=== PATIENT | female | born 1960 | race Caucasian/White ===

== ENCOUNTER → 2018-03-07 | Outpatient (CLI) | payer OTHER, BC ==
--- NOTE | ~2018-03-07 | EKG ---
[address] [place] [place] [address] ELECTROCARDIOGRAM REPORT Name: NIKKY YATES [id number] Admission: 03/07/18 Attend Phys: Keon Mcclure MD Discharge: Date of : 60 Report #: [id number] THIS REPORT FOR: //name// [facility] Test Date: 2018-03-07 Test Time: 13:40:26 Pat Name: NIKKY YATES Department: Room: Gender: F Chairman Emeritus: MIN : 1960 Requested By: Keon Mcclure Order Number: [id number] MD: Didier Zamudio Measurements Intervals Musella Rate: 57 P: 71 [place]: 221 QRS: 45 QRSD: 119 T: 49 QT: 545 QTc: 531 Interpretive Statements Sinus bradycardia Prolonged [place] interval Otherwise no significant abnormality No previous ECG available for comparison Electronically Signed On 03-08-2018 8:27:33 [employer] by Didier Zamudio [email or web address] <ELECTRONICALLY SIGNED> By: Didier Zamudio MD, [facility] 03/08/18 0827 1340 1340 Didier Zamudio MD, FACC /EPI
== END ==
LOC: ULTRA 11:51
DX: J98.4 Other disorders of lung (principal); E04.1 Nontoxic single thyroid nodule; N25.81 Secondary hyperparathyroidism of renal origin; N18.6 End stage renal disease; E03.9 Hypothyroidism, unspecified; D17.0 Benign lipomatous neoplasm of skin and subcutaneous tissue of head, face and neck; Z99.2 Dependence on renal dialysis

== ENCOUNTER 2018-04-13 05:14 | Inpatient (IN) | payer OTHER, BC ==
[~2018-04-13] VITALS: Ht 154.9 cm; Wt 77.1 kg
[~2018-04-13 05:14] MED LIST: DIAZEPAM 2MG TAB2 MG PO; DOXYCYCLINE 10100 MG PO; MIDODRINE HCL10 MG PO; NEPHROCAPS SOFT1 CAP PO; ONDANSETRON HCL4 M2 PO; OXYCODONE-ACET1 EAC2 PO; PROCTOCREAM-HC30 GM TOP; PROCTOZONE-HC30 GM TOP; PROTONIX40 M1 PO; REQUIP0.5 MG PO; SYNTHROID150 MCG PO; TRAZODONE 150150 M1 PO; VENLAFAXINE HC150 MG PO; VENTOLIN HFA 1818 GM INH; ZOCOR 10 MG TAB10 M1 PO
[2018-04-13 10:17] VITALS: BP 125/64
[2018-04-13 10:25] LABS: CALCIUM 6.6 mg/dL (8.5-10.1); CREATININE 4.9 mg/dL (0.6-1.0); POTASSIUM 4.5 mmol/L (3.5-5.1)
[2018-04-13 10:31] LABS: ALBUMIN 3.4 g/dL (3.4-5.0); TOTAL BILIRUBIN 0.5 mg/dL (<0.1-1.0)
[2018-04-13] MEDS ORDERED: RENVELA800 MG PO ×2 (11:26→11:27)
[2018-04-13 18:51] LABS: ALBUMIN 3.3 g/dL (3.4-5.0); MAGNESIUM 2.2 mg/dL (1.8-2.4)
[2018-04-13 20:10] VITALS: BP 143/68
[2018-04-14 04:51] VITALS: BP 111/59
[2018-04-14 07:25] VITALS: BP 113/61
[2018-04-14 07:41] LABS: ALBUMIN 3.3 g/dL (3.4-5.0); POTASSIUM 4.9 mmol/L (3.5-5.1)
[2018-04-14 07:42] LABS: CALCIUM 5.5 mg/dL (8.5-10.1); CREATININE 6.1 mg/dL (0.6-1.0)
--- NOTE | 2018-04-14 10:58 | H ---
[facility] [place] [address] HISTORY AND PHYSICAL Name: NIKKY YATES Room #: 423-1 ADM IN M.R.#: [id number] Admission: 04/14/18 Attend Phys: Keon Mcclure MD Discharge: Date of : 60 Report #: [id number] THIS REPORT FOR: //name// CC: Wilfred Corbin DATE OF PROCEDURE: 04/13/2018. PREOPERATIVE DIAGNOSES: 1. Secondary hyperparathyroidism. 2. End-stage renal disease, on dialysis. HISTORY OF PRESENT ILLNESS: The patient is a 58-year-old female, referred by Dr. Hurtado for definitive treatment of secondary hyperparathyroidism. The patient has end-stage renal disease and is on dialysis. She has been unresponsive to Sensipar. The patient's PTHs have been as high as 1198. This caused difficulty in the management of her phosphorus. Her calcium has been managed with her dialysis. She dialyzes 3 times a week. The patient is symptomatic with bone and joint pain and muscle fatigue. In addition, the patient is hypothyroid with a severely atrophic thyroid. She has been on levothyroxine replacement. PAST MEDICAL HISTORY: Significant for end-stage renal disease, on dialysis. Anxiety, diabetes mellitus, osteoporosis, history of transfusion. History of colonoscopy with polyp removal. History of cholecystectomy, history of inguinal herniorrhaphy repair, history of a gastric bypass, history of CVA, history of thyroid disease. History of coronary artery disease. MEDICATIONS: Noted in MAR. ALLERGIES: CODEINE, METFORMIN AND LYRICA. REVIEW OF SYSTEMS: Significant for bone and joint pain as well as hyperparathyroidism and end-stage renal disease. Remaining 12-point review of systems negative. PHYSICAL EXAMINATION: GENERAL: Well-developed 58-year-old overweight female. HEENT: Normocephalic. Pupils equal, round, reactive to light. Otologic exam intact. Normal tympanic membrane. No middle ear effusion. Nasal exam is clear. Oral cavity, no lesions. Hypopharynx mobile vocal cords. 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 Trachea is midline. No palpable thyroid mass or parathyroid mass. NEUROLOGIC: Cranial nerves 2-12 intact. Motor and sensory exams are normal. [address] [address] HISTORY AND PHYSICAL Name: NIKKY YATES Room #: 423-1 [facility] IN ..#: [id number] Admission: 04/14/18 Attend Phys: Keon Mcclure MD Discharge: Date of : 60 Report #: [id number] ASSESSMENT: 1. Secondary hyperparathyroidism, resistant to Sensipar . 2. End-stage renal disease, on dialysis. 3. Multinodule hypoactive thyroid with atrophic findings and calcified nodules. 4. Anterior neck lipoma. PLAN: Recommendations were made for parathyroidectomy with autotransplantation, in addition, possible total thyroidectomy. I have discussed the procedure, indications, alternatives, benefits, potential risks with the patient who understands and desires to proceed. <ELECTRONICALLY SIGNED> By: Keon Mcclure MD 04/14/18 1058 1805 1838 Keon Mcclure MD /nt
--- NOTE | 2018-04-14 10:58 | O ---
[facility] [place] [address] OPERATIVE REPORT Name: NIKKY YATES Room #: 423-1 ADM IN M.R.#: [id number] Admission: 04/14/18 Attend Phys: Keon Mcclure MD Discharge: Date of : 60 Report #: [id number] THIS REPORT FOR: //name// CC: Dr. Bryant Corbin DATE OF SERVICE: 04/13/2018 PREOPERATIVE DIAGNOSES: 1. Secondary hyperparathyroidism. 2. End-stage renal disease, on dialysis. 3. Multinodular goiter with hypothyroidism. POSTOPERATIVE DIAGNOSES: 1. Secondary hyperparathyroidism. 2. End-stage renal disease, on dialysis. 3. Multinodular goiter with hypothyroidism. PROCEDURES: 1. Total parathyroidectomy. 2. Parathyroid autotransplantation right superior to right sternocleidomastoid muscle. 3. Total thyroidectomy. 4. Nerve integrity monitoring x 2 hours. INDICATIONS: The patient is a 58-year-old female referred by Dr. Hurtado with secondary hyperparathyroidism that has been recalcitrant to treatment with parathyroids running in the 1200 range. Her calcium has been managed with her dialysis. The patient is symptomatic with bone pain and muscle pain and she has been referred for surgical management. In addition, she has a multinodular thyroid. DESCRIPTION OF PROCEDURE: The patient was brought to the operating room and placed supine on the operating table. After adequate general anesthesia was achieved via endotracheal intubation with a nerve integrity monitoring endotracheal tube, shoulder roll was placed and neck was extended. She was then prepped and aped in a sterile fashion. As a separate part of the procedure, the XDial a Dealer nerve integrity monitor was applied to the electrodes from the endotracheal tube. Needle electrodes were placed in the soft tissue overlying the sternum and contralateral shoulder. Electrode resistance and impedance was measured and found to be acceptable. Threshold and stimulus intensity parameters were set and the patient was monitored for the entirety of the case of approximately 2-3 hours in order to locate and protect the recurrent laryngeal nerve. [address] [address] OPERATIVE REPORT Name: NIKKY YATES Room #: 423-1 ADM IN .R.#: [id number] Admission: 04/14/18 Attend Phys: Keon Mcclure MD Discharge: Date of : 60 Report #: [id number] Procedure began with an incision through skin and subcutaneous tissue and platysma. Subplatysmal flaps were elevated superiorly and inferiorly. Dissection was made down to the strap muscles. These were divided vertically in the midline and retracted laterally. Procedure began on the patient's left side beginning superiorly. The superior thyroid vessels were identified. The middle thyroid vein was taken down between Ligaclips and the inferior thyroid vein identified. Along the inferior vein, there was noted to be parathyroid that was enlarged, although not usually. This was then removed and sent off the field as specimen confirming parathyroid tissue. 15 minutes after that was excised an initial intraoperative PTH was done, we turned a value of 1337. Baseline preoperative was 1928. Search was then continued on the right side again along the inferior thyroid vein. The parathyroid was easily identified, again enlarged. This was dissected free, delivered off the field as specimen and confirmed as parathyroid tissue. 15 minutes after excision of the second parathyroid, this returned a value of 773. The gland was then rolled superiorly. There was a superior parathyroid opposite the cricothyroid joint. This was then dissected free, again enlarged. This was deep posterior to the recurrent nerve and lying along the esophagus. This was also enlarged. This was removed. This was then bivalved keeping a piece behind and sent to the pathologist for frozen section. This again returned cellular parathyroid. After 15 minutes post-removal, our value was 406. Search began on the opposite left side. There was a very suspicious calcified nodule present in this thyroid and for that reason it was elected to proceed with thyroidectomy. Beginning on the right, the superior vessels were dissected between Ligaclips and divided. Middle thyroid vein had already been taken down, the inferior vessels were clamped between Ligaclips and divided. Dissection began superior to inferior. The recurrent nerve was identified in the tracheoesophageal groove and tracked superiorly to the cricothyroid joint. Keeping this in direct vision, Dunn's ligament was taken down sharply. The isthmus was then divided and this specimen was placed in formalin. On the left side beginning superiorly, the superior vessels were sequentially identified, clamped between Ligaclips and divided. Middle thyroid vein was taken down between Ligaclips and inferiorly the vessels were sequentially identified, clamped between Ligaclips and divided. The thyroid gland was extremely hypoplastic and atrophic, but there were very large veins noted. This was then dissected from lateral to medial. The recurrent nerve was identified in the tracheoesophageal groove. It was confirmed with probe stimuli, tracked superiorly to the cricothyroid joint. Dunn's ligament was taken down sharply. There was some fat deep to this under the esophagus. This was removed. This was not parathyroid but fat only. Lobe was then sent with suspicious of the parathyroid intrathyroidal. This was indeed confirmed as 1 mm parathyroid. 15 minutes after this removal, the final iPTH was drawn and returned a value of 47 showing complete removal of the parathyroids. The previously harvested superior parathyroid half was then minced and placed into a muscle pocket in the right sternocleidomastoid muscle. This was marked with three medium Ligaclips for future reference. The wounds were then irrigated, [facility] [address] [place] [address] OPERATIVE REPORT Name: NIKKY YATES Room #: 423-1 ADM IN M.R.#: [id number] Admission: 04/14/18 Attend Phys: Keon Mcclure MD Discharge: Date of : 60 Report #: [id number] hemostasis assured with clip ligature and bipolar cautery. Powdered Stephanie was placed opposite each cricothyroid joint. A 3-0 Vicryl was used to close platysma after placement of a 10-Wallisian Huey drain. This was placed through a separate stab incision, curled into the wound and connected to bulb suction. The platysmal layer was also closed with 3-0 Vicryl. The skin was then closed with interrupted 4-0 Vicryl and a running 5-0 subcuticular Prolene. Mastisol and Steri-Strips were applied followed by an Op-Site. The drain was sutured in place with 2-0 silk. The patient was then returned to anesthesia, awake without difficulty, returned to recovery in good condition. Sponge and needle counts were correct. There were no complications and the blood loss was 75 mL. The patient will be watched awake and stable overnight. Assuming the calciums remain stable, she may be discharged. The patient will be watched for any sign of hungry bone syndrome. DISCHARGE MEDICATIONS: Include cephalexin 500 mg b.i.d. for 10 days, Phenergan suppository 25 mg 1 per rectum q. 4-6 hours p.r.n., hydrocodone/acetaminophen 7.5/325 one to two q. 4-6 hours p.r.n., Tums 2 tablets t.i.d. She is instructed on light activity and soft diets. <ELECTRONICALLY SIGNED> By: Keon Mcclure MD 04/14/18 1058 1751 1814 Keon Mcclure MD /nt
[2018-04-14 16:30] VITALS: BP 154/70
[2018-04-14 19:25] VITALS: BP 122/54
[2018-04-15 05:28] VITALS: BP 120/55
[2018-04-15 05:33] LABS: CALCIUM 6.6 mg/dL (8.5-10.1); PHOSPHORUS 5.3 mg/dL (2.5-4.9); POTASSIUM 4.7 mmol/L (3.5-5.1)
[2018-04-15 05:35] LABS: CREATININE 4.5 mg/dL (0.6-1.0)
[2018-04-15 07:05] VITALS: BP 106/58
[2018-04-15 16:00] VITALS: BP 125/53
[2018-04-15 19:41] VITALS: BP 118/56
[2018-04-16 03:32] VITALS: BP 117/65
[2018-04-16 03:56] LABS: ALBUMIN 2.8 g/dL (3.4-5.0); PHOSPHORUS 6.3 mg/dL (2.5-4.9); POTASSIUM 4.5 mmol/L (3.5-5.1)
[2018-04-16 04:02] LABS: CREATININE 5.8 mg/dL (0.6-1.0)
[2018-04-16 04:04] LABS: CALCIUM 5.5 mg/dL (8.5-10.1)
[2018-04-16 07:20] VITALS: BP 114/55
--- NOTE | 2018-04-16 12:25 | HC ---
[facility] [place] [address] CONSULTATION Name: NIKKY YATES Room #: 423-1 ADM IN M.R.#: [id number] Admission: 04/14/18 Attend Phys: Keon Mcclure MD Discharge: Date of : 60 Report #: [id number] THIS REPORT FOR: //name// CC: Keon Corbin DATE OF SERVICE: 04/14/2018 ATTENDING PHYSICIAN: Dr. Hurtado. CHIEF COMPLAINT: The patient presents with end-stage renal disease for parathyroidectomy secondary to severe secondary hyperparathyroidism. HISTORY OF PRESENT ILLNESS: This 58-year-old patient has been on dialysis for the last 4 years. She has developed severe secondary hyperparathyroidism, refractory to medical therapy. Parathyroid hormone levels have been in the range of 1-2000. She is admitted for parathyroidectomy and she also has been found to have atrophic thyroid with some cystic changes. Yesterday, she underwent parathyroidectomy with oral transplantation of one of the parathyroid glands and also thyroidectomy. PAST MEDICAL HISTORY: End-stage renal disease. She was morbidly obese with diabetes, had a gastric bypass and no longer has diabetes. She is a longstanding cigarette smoker with peripheral vascular disease and COPD. She has had previous cholecystectomy, inguinal hernia repair and prior gastric bypass as mentioned. She has had a history of paroxysmal atrial fibrillation as well. She has had multiple failed arm dialysis access procedures and now dialyzes with a left femoral thigh graft, which has been functioning well recently and has required some procedures in the past. HOME MEDICATIONS: Listed as albuterol inhaler p.r.n., Nephrocaps 1 daily, diazepam 2 mg q. 8 p.r.n., doxycycline 100 mg daily, thyroid 150 mcg daily, midodrine 10 mg before dialysis, Protonix 40 mg daily, Requip 0.5 mg daily, Renvela 800 mg with meals t.i.d., Desyrel 150 mg at bedtime, venlafaxine 150 mg 2 daily and simvastatin 10 mg daily. FAMILY HISTORY: Noncontributory. SOCIAL HISTORY: Longstanding and continued cigarette smoker. No alcohol. REVIEW OF SYSTEMS: GENERAL: She has been feeling poorly. EYES: Vision reasonably good. ENT: Hearing okay, swallows okay, little sore in the neck after the surgery. ENDOCRINE: Positive for diabetes, now better after her weight loss after gastric bypass surgery. [address] [address] CONSULTATION Name: NIKKY YATES Room #: 423-1 [facility] IN M.R.#: [id number] Admission: 04/14/18 Attend Phys: Keon Mcclure MD Discharge: Date of : 60 Report #: [id number] RESPIRATORY: Somewhat easily short-winded. CARDIAC: No chest pain or angina. No recent palpitations. History of prior PAF. GASTROINTESTINAL: Appetite fair. GENITOURINARY: Really does not make any urine anymore. NEUROLOGIC: Some numbness in the distal lower extremities. PHYSICAL EXAMINATION: GENERAL: Chronically ill-appearing patient. SKIN: Otherwise, unremarkable. SKELETAL: Well-developed, well-nourished No amputations. HEENT: Extraocular movements are full. Vision intact. No scleral icterus. Hearing intact. Mucous membranes moist. Tongue, buccal mucosa benign. NECK: Supple. Neck incision noted. CHEST: Shows somewhat coarse breath sounds. HEART: Regular. ABDOMEN: Soft, nontender. EXTREMITIES: Show the left thigh graft functioning well. LABORATORY DATA: Calcium fell rather dramatically after the surgery and down to 5.5 this morning. Phosphorus at 7.0, albumin at 3.3, potassium 4.9. ASSESSMENT AND PLAN: 1. Status post parathyroidectomy. She has hungry bone syndrome. She is on IV calcium, which will be continued with intermittent infusions as well as oral calcium with calcitriol. 2. End-stage renal disease requiring dialysis, ordered for today. 3. History of gastric bypass with prior diabetes mellitus. 4. Intermittent hypotension, on midodrine before dialysis. 5. Cigarette smoking with chronic obstructive pulmonary disease. <ELECTRONICALLY SIGNED> By: Wilfred Hurtado MD 04/16/18 1225 0957 2237 Wilfred Hurtado MD /nt
[2018-04-16 16:48] VITALS: BP 120/62
[2018-04-16 19:53] VITALS: BP 130/67
[2018-04-17 04:52] VITALS: BP 141/70
[2018-04-17 07:34] VITALS: BP 130/59
[2018-04-17 12:52] LABS: ALBUMIN 2.6 g/dL (3.4-5.0); PHOSPHORUS 7.3 mg/dL (2.5-4.9); POTASSIUM 5.7 mmol/L (3.5-5.1)
[2018-04-17 12:58] LABS: CREATININE 7.1 mg/dL (0.6-1.0)
[2018-04-17 13:00] LABS: CALCIUM 5.7 mg/dL (8.5-10.1)
--- NOTE | 2018-04-17 14:06 | PATH ---
[facility] [address] [place] [address] PATHOLOGY RPT PROCEDURE Name: NIKKY YATES Room #: 423-1 ADM IN M.R.#: [id number] Admission: 04/14/18 Date of : 60 Discharge: Report #: [id number] Path Case #: [id number] [facility] Accession Number: [id number] . 01 Material submitted: . PART A: LEFT INFERIOR R/O PARATHYROID FS PART B: RIGHT INFERIOR R/O PARATHYROID FS PART C: RIGHT SUPERIOR R/O PARATHYROID FS PART D: LEFT SUPERIOR R/O PARATHYROID FS PART E: LEFT LOBE OF THYROID R/O PARATHYROID FS PART F: RIGHT LOBE OF THYROID . 02 Diagnosis: A. Parathyroid, left inferior parathyroid, excision: - Hypercellular parathyroid tissue present, 0.3 grams. . B. Parathyroid, right inferior parathyroid, excision: - Hypercellular parathyroid tissue present, 0.3 grams. . C. Parathyroid, right superior parathyroid, excision: - Hypercellular parathyroid tissue present, fragment received. . D. Fibroadipose tissue, left superior rule out parathyroid, excision: - Mature adipose tissue. - No parathyroid tissue present. . E. Thyroid, left lobe of thyroid, lobectomy: - Moderate chronic lymphocytic thyroiditis associated with squamous metaplasia, Hurthle cell metaplasia as well as fibrosis. - Calcified nodule measuring 0.4 cm (no viable cells present within decalcified tissue). . E. Parathyroid, left lobe of thyroid, rule out parathyroid, excision: - Hypercellular parathyroid tissue present, measuring 8 mm in greatest dimension. . F. Thyroid, right lobe of thyroid, lobectomy: - Moderate chronic lymphocytic thyroiditis associated with squamous metaplasia and Hurthle cell metaplasia. - Two minute lymph nodes identified in perithyroidal soft tissue showing reactive changes. . (IUV:records assistant; 04/16/2018) MBR/04/16/2018 . 02 Electronically signed: . Carmen Saravia MD, [place] [address] PATHOLOGY RPT PROCEDURE Name: NIKKY YATES ANTONIA Room #: 423-1 [facility] IN ..#: [id number] Admission: 04/14/18 Date of : 60 Discharge: Report #: [id number] Path Case #: [id number] [facility] [[email or web address]]- [id number] . 01 Gross description: . A. Specimen A is received fresh from the OR labeled with the patient's name, "left inferior rule out parathyroid", consists of a 0.3 gram oval fatty fragment of tissue associated with some fat and it measures approximately 1.3 x 1 x 0.3 cm. The specimen is inked blue and entirely submitted for frozen section as FSA1. This is subsequently submitted for permanent sections as A1. . B. Specimen B is received fresh from the OR labeled with the patient's name, "right inferior rule out parathyroid", consists of an oval fragment of tissue measuring approximately 0.8 x 0.8 x 0.3 cm. It is 0.3 grams as well. The capsule is inked black and the specimen is submitted for frozen section entirely as FSB1, subsequently submitted for permanent sections as B1. . C. Specimen C is received fresh from the OR labeled with the patient's name, "right superior rule out parathyroid", consists of a minute 0.3 x 0.4 x 0.3 fragment of red-arguello tissue. Submitted entirely for frozen section as FSC1, subsequently submitted for permanent sections as C1. . D. Specimen D is received fresh from the OR labeled with the patient's name, "left superior rule out parathyroid", consist of a fatty fragment of tissue measuring 1.5 x 1.5 x 0.3 cm. Submitted entirely for frozen section as FSD1, subsequently submitted for permanent sections as D1. . E. Specimen E is received fresh from the OR labeled with the patient's name, "left lobe of thyroid, rule out parathyroid", consists of a 4.2 gram thyroid with attached soft tissue measuring approximately 4.5 x 2 x 0.4 cm. The rosy are removed, and the external surface is inked black. Specimen is serially sectioned and a 0.4 cm calcified nodule is identified which is not submitted for frozen sections. About 70% of the tissue received is submitted for frozen section as FSE1 and FSE2, these are subsequently submitted for permanent sections as E1 and E2. The unfrozen portion of the specimen along with the calcified nodule are submitted in decalcification and submitted for permanent sections only as E3. (IUV:records assistant; 04/13/2018) . F. Received in formalin labeled "Gates[employer], right lobe of thyroid" is a 4 g, 5.0 x 3.6 x 0.5 cm hemithyroidectomy specimen. The thyroid capsule is red-brown and smooth. The probable anterior surface is inked green and the probable posterior surface is inked black. The specimen is serially sectioned to reveal a yellow-arguello and lobulated to pink-arguello and fibrotic cut surface. No nodules or other abnormalities are identified. The specimen is submitted entirely and sequentially in cassettes F1-F4. ([facility]; 04/15/2018) . [facility] [place] [address] PATHOLOGY RPT PROCEDURE Name: NIKKY YATES Room #: 423-1 ADM IN M.R.#: [id number] Admission: 04/14/18 Date of : 60 Discharge: Report #: [id number] Path Case #: [id number] . FROZEN SECTION DIAGNOSIS (Carmen Saravia MD) . FSA1. Left inferior parathyroid, excision: - Hypercellular parathyroid tissue present. . FSB1. Right inferior parathyroid, excision: - Hypercellular parathyroid tissue present. . FSC1. Right superior parathyroid, excision: - Parathyroid tissue present. . FSD1. Left superior parathyroid rule out, biopsy: - No parathyroid tissue present. . FSE1 and FSE2. Left lobe of thyroid, rule out parathyroid: - One mm parathyroid tissue present. . These findings are discussed with Dr. Keon Mcclure in OR-6 at [facility] and a written report is placed in the patient's chart. . (IUV:records assistant; 04/13/2018) . Frozen section performed at [facility], [address] [place] [address] , [place] [address]. SYC/SYC . 02 Pathologist provided ICD-10: E06.3, E21.2 . 02 CPT . 243956, 635389, 570496, 714606, 610261, 042346, 456729, 287513, 811219, 539002, 600481, 750218, 971620, 382914 Specimen Comment: A courtesy copy of this report has been sent to Specimen Comment: [phone], . Specimen Comment: Report sent to / DR GRAYSON Specimen Comment: A duplicate report has been generated due to demographic updates. Performed at: [address] [facility] [address], [place], [place] [id number] MD James Hill MD Phone: [phone] Performed at: [address] [facility] [id number] MD Carmen Saravia MD Phone: [phone]
[2018-04-17 20:51] VITALS: BP 94/47
[2018-04-18 04:31] VITALS: BP 92/48
[2018-04-18 07:45] VITALS: BP 108/44
[2018-04-18 16:32] VITALS: BP 97/48
[2018-04-18 20:25] VITALS: BP 94/50
[2018-04-19 04:20] VITALS: BP 105/43
[2018-04-19 16:16] VITALS: BP 125/65
[2018-04-19 19:55] VITALS: BP 99/43
[2018-04-20 03:57] VITALS: BP 115/56
[2018-04-20 06:43] LABS: ABSOLUTE NEUTROPHILS 5.7 thou/uL (1.4-8.2); BASOPHILS 0.4 % (0.0-2.0); HEMATOCRIT 30.9 % (37.0-47.0); HEMOGLOBIN 9.5 gm/dL (12.0-15.0); LYMPHOCYTES 8.7 % (24.0-44.0); MCHC 30.6 g/dL (28.0-37.0); MCV 91.4 fL (80.0-100.0); MONOCYTES 11.2 % (1.0-8.0); PLATELET COUNT 115 thou/uL (150-400); POLYS 75.7 % (36.0-66.0); RBC 3.38 mil/uL (4.20-5.00); RDW 18.3 % (10.5-14.5); WBC 7.5 thou/uL (4.0-11.0)
[2018-04-20 06:53] LABS: POTASSIUM 5.2 mmol/L (3.5-5.1)
[2018-04-20 06:54] LABS: CREATININE 4.3 mg/dL (0.6-1.0)
[2018-04-20 08:45] LABS: ANISOCYTOSIS 2+; PLATELET ESTIMATE NORMAL; SCHISTOCYTES FEW
[2018-04-20] MEDS ORDERED: CALCITRIOL0.25 MCG PO (13:52)
[2018-04-20] MEDS ORDERED: TYLENOL EXTRA500 MG PO (13:52)
[2018-04-20] MEDS ORDERED: COLACE100 MG PO (13:52)
[2018-04-20] MEDS ORDERED: TUMS PO (13:52)
[2018-04-20 14:35] VITALS: BP 115/56
[2018-04-20 14:46] VITALS: BP 115/56
[2018-04-20 17:12] VITALS: BP 115/56
== END 2018-04-20 18:27 | disposition home or self-care (01) | DRG 673 ==
LOC: OR 05:14 → TBA 05:14 → OR 14:34 → 4E 17:00 → OR 04-14 10:48 → 4E 04-14 10:48 → ENTRNSPT 04-20 17:59 → 4E 04-20 18:27
PROVIDERS: Hospitalist; Internal Medicine Nephrology; Nurse Practitioner; Otolaryngology Plastic Surgery within the Head & Neck; ADMIT Hospitalist
DX: N25.81 Secondary hyperparathyroidism of renal origin (principal); E43 Unspecified severe protein-calorie malnutrition; I12.0 Hypertensive chronic kidney disease with stage 5 chronic kidney disease or end stage renal disease; E04.2 Nontoxic multinodular goiter; N18.6 End stage renal disease; M81.0 Age-related osteoporosis without current pathological fracture; F41.9 Anxiety disorder, unspecified; E11.22 Type 2 diabetes mellitus with diabetic chronic kidney disease; I25.10 Atherosclerotic heart disease of native coronary artery without angina pectoris; D17.0 Benign lipomatous neoplasm of skin and subcutaneous tissue of head, face and neck; I95.89 Other hypotension; J44.9 Chronic obstructive pulmonary disease, unspecified; E83.51 Hypocalcemia; E83.39 Other disorders of phosphorus metabolism; E78.5 Hyperlipidemia, unspecified; K21.9 Gastro-esophageal reflux disease without esophagitis; F32.9 Major depressive disorder, single episode, unspecified; F12.90 Cannabis use, unspecified, uncomplicated; G43.909 Migraine, unspecified, not intractable, without status migrainosus; Z90.49 Acquired absence of other specified parts of digestive tract; Z98.84 Bariatric surgery status; Z86.73 Personal history of transient ischemic attack (TIA), and cerebral infarction without residual deficits; Z88.6 Allergy status to analgesic agent; Z88.8 Allergy status to other drugs, medicaments and biological substances
CPT/HCPCS: 10783; 32100; 50010; 50101; 50331; 50386; 50417; 52190; 52220; 52225; 52287; 56524; 56526; 56528; 56760; 57006; 62110; 62900; 65020; 65040; 65133; 70005

== ENCOUNTER 2018-04-27 14:15 | Inpatient (IN) | payer OTHER, BC ==
[~2018-04-27] VITALS: Ht 198.1 cm; Wt 78.9 kg
--- NOTE | ~2018-04-27 | HC ---
[facility] [place] [address] CONSULTATION Name: NIKKY YATES Room #: 351-P ADM IN M.R.#: [id number] Admission: 04/27/18 Attend Phys: Damaso Lisa MD Discharge: Date of : 60 Report #: [id number] THIS REPORT FOR: //name// CC: Damaso Corbin REASON FOR CONSULTATION: End-stage renal disease. REASON FOR PRESENTATION: Symptomatic hypocalcemia. HISTORY OF PRESENT ILLNESS: A 58-year-old with known end-stage renal disease, maintained on dialysis every Monday, and Monday; extreme noncompliance. She had her parathyroidectomy surgery done with 3 parathyroid adenomas identified and 1 parathyroid left in the intrathyroidal area. She also has hypothyroidism. She had hungry bone syndrome and was discharged with a calcium of 8.3 corrected for her albumin. She was advised to start taking Tums 2 grams q.i.d. along with calcitriol. Routine labs as an outpatient revealed that her calcium was 3.7. She had some issues with numbness and diffuse body cramps. She was admitted to manage accordingly. PAST MEDICAL HISTORY: Extensive and includes the followin. End-stage renal disease. 2. Post cardiac arrest. 3. Chronic obstructive pulmonary disease. 4. Gastrointestinal bleeding. 5. Chronic hypertension. 6. Diabetes mellitus. 7. Status post gastric bypass surgery. 8. Status post parathyroidectomy. 9. Cholecystectomy. 10. Numerous AV access for AV fistula. 11. Atrial fibrillation. SOCIAL HISTORY: Lives with her . No drug or alcohol abuse. REVIEW OF SYSTEMS: GENERAL: Significant for weakness. CARDIOVASCULAR: No chest pain. PULMONARY: Chronic cough. GASTROINTESTINAL: No nausea or vomiting. MUSCULOSKELETAL: As per the history of present illness. MEDICATIONS: 1. Oxycodone. 2. Trazodone. 3. Sevelamer. 4. Calcium carbonate. [facility] [address] [place] [address] CONSULTATION Name: NIKKY YATES Room #: 351-P [facility] IN [facility].#: [id number] Admission: 04/27/18 Attend Phys: Damaso Lisa MD Discharge: Date of : 60 Report #: [id number] 5. Calcitriol. 6. Midodrine. FAMILY HISTORY: Significant for diabetes mellitus. PHYSICAL EXAMINATION: GENERAL: Alert, oriented. VITAL SIGNS: Temperature 36.7, pulse rate 78, respiratory rate 20, blood pressure 128/70. HEAD AND NECK: No jugular venous distention, lymphadenopathy or thyromegaly. Scar from her recent parathyroid, thyroid surgery. CHEST: No crackles. CARDIOVASCULAR: No rub. ABDOMEN: Soft, nontender. LOWER EXTREMITIES: Left thigh graft. LABORATORY DATA: Reviewed. Most recent calcium is still low at 5.0, phosphorus from yesterday was 6.2. ASSESSMENT, IMPRESSION AND PLAN: 1. Symptomatic hypocalcemia due to noncompliance with prescribed medications. 2. End-stage renal disease. 3. Hungry bone syndrome, status post parathyroidectomy. 4. We will continue with the usual hemodialysis on a high potassium and high calcium bath. We will continue with the IV supplementation of her calcium. 5. Continue with oral Tums, calcitriol. By: [id number] Pita Rosario MD /nt
[~2018-04-27 14:15] MED LIST changes: +CALCITRIOL0.25 MCG PO; +COLACE100 MG PO; +RENVELA800 MG PO; +TUMS PO; +TYLENOL EXTRA500 MG PO
[2018-04-27 14:16] VITALS: BP 107/58
[2018-04-27 15:22] LABS: HEMATOCRIT 34.8 % (37.0-47.0); HEMOGLOBIN 10.9 gm/dL (12.0-15.0); MCH 28.8 pg (26.0-34.0); MCHC 31.3 g/dL (28.0-37.0); MCV 91.9 fL (80.0-100.0); RBC 3.79 mil/uL (4.20-5.00); RDW 18.6 % (10.5-14.5); WBC 13.2 thou/uL (4.0-11.0)
--- NOTE | 2018-04-27 15:29 | NUR ---
PT STATES SHE HAD HER THYROID/PARATHYROID REMOVED 1 WEEK AGO. C/O CRAMPING T/O
[2018-04-27 15:32] LABS: ANION GAP 19 mmol/L (7-16); BUN 36 mg/dL (7-18); CHLORIDE 103 mmol/L (98-107); CO2 13 mmol/L (21-32); CREATININE 8.6 mg/dL (0.6-1.0); GLUCOSE 111 mg/dL (74-106); POTASSIUM 3.9 mmol/L (3.5-5.1); SODIUM 135 mmol/L (136-145)
[2018-04-27 15:37] LABS: ALBUMIN 2.9 g/dL (3.4-5.0); MAGNESIUM 1.8 mg/dL (1.8-2.4); SGOT 21 U/L (15-37); SGPT 6 U/L (30-65); TOTAL BILIRUBIN 0.5 mg/dL (<0.1-1.0)
[2018-04-27 15:39] LABS: CALCIUM < 5.0 mg/dL (8.5-10.1)
[2018-04-27 17:51] VITALS: BP 114/63
[2018-04-27 20:10] VITALS: BP 126/63
--- NOTE | 2018-04-27 23:27 | NUR ---
ASSSUMED CARE OF PT DURING ADMISSION TO UNIT. VS STABLE. TELEMETRY INITATED, SR. A&Ox4, ANSWERED ASSESSMENT QUESTIONS. MAINTENANCE FLUIDS INITIATED. C/O ACUTE ON CHRONIC PAIN. MEDS GIVEN W/ PARTIAL RELIEF. REQUESTED MEAL, PROVIDED. CALLED OUT FOR ASSIST TO BR. 1 LOOSE BM WITH VOID. CURRENTLY STABLE AND RESTING IN BED. MEDS ADMINISTERED ORDERED. CARE PLAN INITIATED.
[2018-04-27 23:45] VITALS: BP 113/47
[2018-04-28 03:40] VITALS: BP 123/54
[2018-04-28 05:50] LABS: HEMATOCRIT 28.3 % (37.0-47.0); MCH 27.9 pg (26.0-34.0); MCHC 31.8 g/dL (28.0-37.0); MCV 87.8 fL (80.0-100.0); RBC 3.23 mil/uL (4.20-5.00); RDW 18.2 % (10.5-14.5)
[2018-04-28 06:10] LABS: CREATININE 8.6 mg/dL (0.6-1.0); POTASSIUM 4.2 mmol/L (3.5-5.1)
[2018-04-28 07:47] VITALS: BP 128/70
[2018-04-28 12:00] VITALS: BP 152/72
--- NOTE | 2018-04-28 15:01 | NUR ---
VASCULAR ACCESS CONSULTED FOR A LINE FOR THIS PT. PLEASE SEE INSERTION NOTE.
[2018-04-28 20:19] VITALS: BP 124/61
[2018-04-29 03:10] VITALS: BP 116/53
--- NOTE | 2018-04-29 04:12 | NUR ---
SLEPT MOST OF SHIFT PAST DIALYSIS. PAIN MEDICATIONS GIVEN PRN WITH NOTED RELIEF. PATIENT SOUND SLEEPER AND SWINGS AT STAFF IF NOT AROUSED WITH LIGHTS. WORKING ON GOALS AND PLAN OF CARE FOR NOC. MONITER LABS FOR CALCIUM CHANGES. WORKING SLOWLY ON GOALS OF DISCHARGE. CONTINUE TO ASSES.
[2018-04-29 07:13] LABS: HEMATOCRIT 26.9 % (37.0-47.0); HEMOGLOBIN 8.8 gm/dL (12.0-15.0); MCH 28.9 pg (26.0-34.0); MCHC 32.6 g/dL (28.0-37.0); MCV 88.5 fL (80.0-100.0); RBC 3.04 mil/uL (4.20-5.00); RDW 18.3 % (10.5-14.5)
[2018-04-29 07:35] LABS: CALCIUM 6.8 mg/dL (8.5-10.1); MAGNESIUM 1.8 mg/dL (1.8-2.4); POTASSIUM 3.6 mmol/L (3.5-5.1)
[2018-04-29 07:40] LABS: CREATININE 4.6 mg/dL (0.6-1.0)
[2018-04-29 08:31] VITALS: BP 121/52
[2018-04-29 11:28] VITALS: BP 105/54
--- NOTE | 2018-04-29 13:38 | HC ---
[facility] [place] [address] CONSULTATION Name: NIKKY YATES Room #: 351-P ADM IN M.R.#: [id number] Admission: 04/27/18 Attend Phys: Damaso Lisa MD Discharge: Date of : 60 Report #: [id number] THIS REPORT FOR: //name// CC: Damaso Corbin DATE OF SERVICE: 04/28/2018 ENDOCRINE CONSULTATION The patient of Dr. Lisa. LOCATION: [facility], room 351. SUBJECTIVE: A 58-year-old white female with severe hypocalcemia. The patient's history is essentially as per prior records. She has been on dialysis for 4 years and recently underwent a parathyroidectomy and thyroidectomy with postoperative sudden fall in serum calcium. The patient is unclear as to her outpatient dosage of calcium and calcitriol, but apparently was trying to overload the system with massive amounts of calcium resulting in nausea and vomiting. Currently, the patient is on high dose oral calcium, IV calcium, and low dose calcitriol. Lab values and the patient's symptoms have both improved slightly. Otherwise, I have no pertinent historical information to dictate other than previously charted. OBJECTIVE: LABORATORY DATA: As per chart, calcium was lower than 5. Ionized calcium is pending. Phosphorus 6.2, magnesium 2.0. PHYSICAL EXAMINATION: Well-nourished, well-developed, obese 58-year-old white female, who is not in any acute distress except that she is scratching all four extremities continuously. She is afebrile, heart rate 79 and regular, blood pressure 152/72. The examination is prominent only for the patient's behavior of continuous scratching even when reminded that this will worsen her symptomatic problem. Chvostek sign and Trousseau signs are both negative. ASSESSMENT: 1. Chronic renal disease, on dialysis. 2. Prior secondary hyperparathyroidism, now hypoparathyroid post-parathyroidectomy with severe hypocalcemia and hyperphosphatemia. PLAN: 1. Will decrease the very large dose of daily oral calcium intake as this calcium will not be absorbed without sufficient activated vitamin D. Instead [facility] [address] [place] [address] CONSULTATION Name: NIKKY YATES Room #: 351-P [facility] IN M.R.#: [id number] Admission: 04/27/18 Attend Phys: Damaso Lisa MD Discharge: Date of : 60 Report #: [id number] will decrease to 1000 mg of supplemental oral calcium with meals and increase daily calcitriol to a more appropriate 0.5 mcg b.i.d. This dosage may be increased even further given the patient's hungry bones and low parathyroid level. The patient will need up to 1 week to return her calcium to normal, even with the above aggressive therapy. 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 2. Thank you very much for this opportunity. I will continue to follow the patient with you for evaluation and treatment of hypoparathyroidism and hypocalcemia. 3. Even though patient is on a very high dosage of L-thyroxine replacement, her laboratory studies are within normal limits and this dosage should be maintained. <ELECTRONICALLY SIGNED> By: Napoleon Neville MD 04/29/18 1338 1413 05 Napoleon Neville MD /nt
[2018-04-29 15:49] VITALS: BP 116/55
[2018-04-29 19:09] VITALS: BP 98/48
--- NOTE | 2018-04-29 19:47 | NUR ---
care of pt assumed this am @ ~0700. pt stated that she makes very little urine, "just dribbles". pt scheduled for dialysis on Monday per dr. hunter. pt has co of generalized pain/discomfort, requesting pain medication every six hours w/ relief. pt has had a great appetite for food today, she states she drinks very little liquid in a day, pt was switched to a regular diet from a heart healthy diet which made her very happy. pt has denied n/v/d today. pt receiving ivf's w/o issue to rt ij catheter. pt has remained within her room, w/o visitors, all day watching tv & playing on her phone.
[2018-04-30 02:49] VITALS: BP 116/58
[2018-04-30 06:11] LABS: HEMATOCRIT 24.9 % (37.0-47.0); HEMOGLOBIN 8.2 gm/dL (12.0-15.0); MCHC 33.1 g/dL (28.0-37.0); MCV 87.7 fL (80.0-100.0); RBC 2.84 mil/uL (4.20-5.00); RDW 18.3 % (10.5-14.5); WBC 10.6 thou/uL (4.0-11.0)
--- NOTE | 2018-04-30 06:11 | NUR ---
ASSUMED CARE OF PT AT 1900. A&Ox4, COOPERATIVE. C/O PAIN, RATED 9-10/10, MEDS GIVEN W/ PARTIAL RELIEF. C/O NAUSEA, PO ZOFRAN GIVEN. PT VOMITED ON FLOOR AND TRASH CAN 10 MINS LATER. IV ZOFRAN GIVEN W/ FULL RELIEF. PT PULLED OUT IJ WHILE SLEEPING. CALLED ER AND ER STAFF PLACED EJ PLACED. PT TOLERATED AND AGREEABLE BUT WANTS A LINE FOR LAB DRAWS TO AVOID STICKS FOR LABS. WILL PASS ON. MONITORING AND ADMINISTERING CALCIUM PER TX PLAN. PROGRESSING TOWARDS POC GOALS.
[2018-04-30 06:28] LABS: MAGNESIUM 1.9 mg/dL (1.8-2.4); POTASSIUM 4.2 mmol/L (3.5-5.1)
[2018-04-30 06:31] LABS: CREATININE 6.2 mg/dL (0.6-1.0)
[2018-04-30 06:32] LABS: CALCIUM 5.5 mg/dL (8.5-10.1)
[2018-04-30 07:44] VITALS: BP 115/60
[2018-04-30 11:41] VITALS: BP 99/42
--- NOTE | 2018-04-30 12:53 | EKG ---
[address] [place] [place] [address] ELECTROCARDIOGRAM REPORT Name: TRUDYJAJA OREILLYA ANTONIA Room #: 351- ADM IN M.R.#: [id number] Admission: 04/27/18 Attend Phys: Damaso Lisa MD Discharge: Date of : 60 Report #: [id number] THIS REPORT FOR: //name// [facility] Test Date: 2018-04-30 Test Time: 09:47:48 Pat Name: NIKKY YATES Department: Room: 351 Gender: F Welder Manufacture: Alycia DELAROSA : 1960 Requested By: Rosy Ivan Order Number: [id number] MD: Didier Zamudio Measurements Intervals [place] Rate: 72 P: 41 MA: 177 QRS: 41 QRSD: 97 T: 59 QT: 464 QTc: 508 Interpretive Statements Sinus rhythm Borderline prolonged QT interval Compared to ECG 03/07/2018 13:40:26 Sinus bradycardia no longer present Electronically Signed On 04-30-2018 12:53:18 GEOLOGY ASSOCIATE by Didier Zamudio [email or web address] <ELECTRONICALLY SIGNED> By: Didier Zamudio MD, [facility] 04/30/18 1253 0947 0947 Didier Zamudio MD, [facility] /EPI
--- NOTE | 2018-04-30 15:12 | NUR ---
ASSESSMENT: CM REVIEWED CHART AND MET WITH PATIENT AT THE BEDSIDE. PT IS ALERT AND ORIENTED X4. PT WAS ADMITTED WITH HYPOCALCEMIA. PT LIVES IN A DUPLEX WITH HER . PT REPORTS NO STEPS TO ENTER THE HOUSE. PT REPORTS SHE AMBULATES USING A WALKER. PT REPORTS THAT SHE HAS A GRAB BAR AND SHOWER CHAIR. PT REPORTS SHE HAS HAD HH IN THE PAST AND FEELS IT WAS A WASTE OF TIME. PT STATES SHE HAS BEEN TO A SNF IN THE PAST STATING SOMEWHERE IN [place]. PT REPORTS SHE DOES NOT FEEL SHE NEEDS HH AT DISCHARGE. PT GOES TO [facility] FOR DIALYSIS [facility] AT 5AM. CM CONTACTED [facility] [phone] TO NOTIFY OF PATIENTS ADMISSION AND THEY REQUESTED DISCHARGE PAPERWORK AND FLOWSHEETS BE FAXED TO THEIR FAX [phone]. CM WILL CONTINUE TO FOLLOW TO ASSIST NEEDED.
[2018-04-30 15:51] VITALS: BP 105/44
--- NOTE | 2018-04-30 17:15 | NUR ---
ASSUMED PATIENT CARE AT 0700. A/0 X4. VERY IRRITABLE IN AM. REFUSED ON RENAL DIET. POOR APPETITE. UP AD AURE. SLOWLY TOWARDS POC GOALS.
[2018-04-30 19:30] VITALS: BP 95/50
[2018-05-01 04:10] VITALS: BP 109/65
--- NOTE | 2018-05-01 05:07 | NUR ---
SLEPT MOST OF SHIFT. UP AD AURE TO BATHROOM WITH STEADY GAIT. MAINTAIN SAFE ENVIRONMENT. PLANS FOR DIALYSIS TODAY AND WILL NOT LET LAB DRAW STATING IT CAN BE DONE WITH DIALYSIS. REFUSES TO STATE NAME AND BIRTHDATE FOR MEDICATION CHECK. STATES YOU KNOW WHO I AM YOU HAVE TAKEN CARE OF ME BEFORE. WORKING ON GOALS AND PLAN OF CARE FOR NOC. PROGRESSING SLOWLY TOWARDS DISCHARGE GOALS. PAIN MEDICATION GIVEN PRN FOR COMFORT WITH NOTED RELIEF. CONTINUE TO ASSES CLOESLY.
[2018-05-01 07:41] VITALS: BP 109/55
[2018-05-01 11:20] LABS: HEMATOCRIT 24.8 % (37.0-47.0); HEMOGLOBIN 8.1 gm/dL (12.0-15.0); MCH 29.1 pg (26.0-34.0); MCHC 32.6 g/dL (28.0-37.0); MCV 89.2 fL (80.0-100.0); RBC 2.78 mil/uL (4.20-5.00); RDW 18.1 % (10.5-14.5); WBC 10.7 thou/uL (4.0-11.0)
[2018-05-01 11:33] LABS: ALBUMIN 2.4 g/dL (3.4-5.0); MAGNESIUM 1.8 mg/dL (1.8-2.4); PHOSPHORUS 6.7 mg/dL (2.5-4.9); POTASSIUM 5.2 mmol/L (3.5-5.1)
[2018-05-01 11:36] LABS: CREATININE 7.5 mg/dL (0.6-1.0)
[2018-05-01 11:37] LABS: CALCIUM 5.9 mg/dL (8.5-10.1)
[2018-05-01 12:14] VITALS: BP 130/82
--- NOTE | 2018-05-01 13:31 | NUR ---
ON-GOING ASSESSMENT: CM REVIEWED CHART AND SPOKE WITH ATTENDING. STILL MONITORING PATIENTS CALCIUM. CM WILL CONTINUE TO FOLLOW TO ASSIST NEEDED.
[2018-05-01 16:24] VITALS: BP 119/73
[2018-05-01 19:20] VITALS: BP 108/54
--- NOTE | 2018-05-01 19:25 | NUR ---
Assumed care of patient at 0700. Vitals have been stable. Received Midodrine before dialysis. Dialysis this morning. Tolerated well. Alert and oriented x4. Has been pleasant and cooperative this shift. Complaints of pain to lower back, hips, knees. Partial relief with PRN Percocet. IVF infusing per orders. Critical calcium this afternoon; Dr. Hurtado states to not call with critical calcium level. Although critical, it is improving. Patient up ad albert in room. Tolerating regular diet and compliant with 1500 mL fluid restriction. Attempting to progress towards POC. Will continue to monitor.
--- NOTE | 2018-05-02 04:21 | NUR ---
Medicated for generalized pain with some relief. Pt. gets irritated easily especially when doing pt. ID identifier. She gets upset and chose not to answer at times. Verbalized , it makes her feel stupid whenever staff asked for her name and bday and said you should know who I am. Explained to pt. it is for her safety. She slept fair during the night. Bed alarm for safety. No nausea or vomiting. Maintained on fluid restriction. Denies being short of breath and tolerating room air well. Will continue to monitor.
[2018-05-02 05:17] VITALS: BP 101/49
[2018-05-02 05:37] LABS: ALBUMIN 2.5 g/dL (3.4-5.0); CALCIUM 6.3 mg/dL (8.5-10.1); MAGNESIUM 1.8 mg/dL (1.8-2.4); PHOSPHORUS 4.9 mg/dL (2.5-4.9)
[2018-05-02 05:47] LABS: CREATININE 4.8 mg/dL (0.6-1.0)
[2018-05-02 07:18] VITALS: BP 111/64
--- NOTE | 2018-05-02 10:33 | NUR ---
PT A&OX4, AMBULATES WITH STAND BY ASSIST. CALCIUM INFUSING IN R EJ @ 50/MLS HR W/O COMPS. DRSG TO EJ CHANGED, HAS CHRONIC GENERALIZED PAIN, PO PAIN MED GIVEN PRIOR TO SHIFT CHANGE. WILL CONT POC.
[2018-05-02 11:55] VITALS: BP 107/53
--- NOTE | 2018-05-02 13:56 | NUR ---
This RN has reviewed and agrees with the assessments and charting completed by nursing aide Sue Laurent.
[2018-05-02 15:52] VITALS: BP 107/65
[2018-05-02 19:55] VITALS: BP 115/61
[2018-05-03 04:12] VITALS: BP 122/62
--- NOTE | 2018-05-03 04:12 | NUR ---
PT REFUSING TO HAVE LABS DRAWN THIS AM. SAID THEY CAN DRAW IT FROM DIALYSIS PORT DURING DIALYSIS THIS AM. PT FAIRLY AGGITATED WITH 0400 VITALS AND ATTEMPTED LAB DRAW. WILL CONTINUE TO MONITOR.
[2018-05-03 07:38] VITALS: BP 106/52
[2018-05-03 08:38] LABS: ALBUMIN 2.6 g/dL (3.4-5.0); CALCIUM 6.6 mg/dL (8.5-10.1); PHOSPHORUS 4.8 mg/dL (2.5-4.9); POTASSIUM 5.1 mmol/L (3.5-5.1)
[2018-05-03 08:39] LABS: CREATININE 6.1 mg/dL (0.6-1.0)
[2018-05-03 11:26] VITALS: BP 120/54
--- NOTE | 2018-05-03 17:32 | NUR ---
PT HAS RATED GENERALIZED PAIN AND IS BEING MEDICATED WITH PERCOCET WITH FAIR RELIEF..
[2018-05-03 20:43] VITALS: BP 111/53
[2018-05-04 04:00] VITALS: BP 103/51
[2018-05-04 07:06] VITALS: BP 101/43
--- NOTE | 2018-05-04 07:20 | NUR ---
Medicated for pain at HS then this am with some relief. She slept fair during the night. Woke up and felt like IV is leaking on right EJ. New IV placed on right upper arm. No nausea or vomiting.. She requested breathing tx this am. Tolerating room air well. Up with SBA to bathroom. Pt. gets upset with bed alarm being on. Explained safety measures due to her high fall risk. Got back from dialysis yesterday around 1930. Making progress towards care plan goals.
[2018-05-04 09:16] LABS: HEMATOCRIT 27.1 % (37.0-47.0); HEMOGLOBIN 8.7 gm/dL (12.0-15.0); MCHC 32.1 g/dL (28.0-37.0); MCV 90.3 fL (80.0-100.0); RDW 17.8 % (10.5-14.5); WBC 9.3 thou/uL (4.0-11.0)
[2018-05-04 09:26] LABS: % SATURATION 28 % (20-39); IRON 33 ug/dL (50-170); TIBC 117 ug/dL (250-450)
[2018-05-04 09:28] LABS: ALBUMIN 2.5 g/dL (3.4-5.0); CALCIUM 7.2 mg/dL (8.5-10.1); PHOSPHORUS 3.4 mg/dL (2.5-4.9); POTASSIUM 4.2 mmol/L (3.5-5.1)
[2018-05-04 09:29] LABS: CREATININE 3.8 mg/dL (0.6-1.0)
--- NOTE | 2018-05-04 10:28 | NUR ---
ON-GOING ASSESSMENT: CM REVIEWED CHART AND SPOKE WITH ATTENDING. PT IS SLOWLY PROGRESSING TOWARDS GOALS AND IS POSSIBLE DISCHARGE OVER THE WEEKEND. CM CONTACTED [facility] [phone] TO NOTIFY THAT PATIENT WILL LIKELY DISCHARGE THIS WEEKEND AND TO EXPECT HER TO BE AT DIALYSIS ON MONDAY. CM FAXED LATEST FLOWSHEETS TO [facility] FAX [phone]. IF PATIENT LEAVES OVER THE WEEKEND FAX DISCHARGE ORDERS/SUMMARY TO [facility]. [facility] FAX:[phone].
[2018-05-04 11:01] VITALS: BP 102/48
--- NOTE | 2018-05-04 12:27 | NUR ---
Assumed care of patient at 0700. Vitals have been stable. Alert and oriented x4. Patient is refusing bed alarm today, but states is aware of risks. Patient is close to nurse's station for close monitoring. Labs drawn this morning; calcium continues to improve. DC IVF per renal. Plan is for dialysis tomorrow and then probably discharge home. Complaints of generalized, chronic pain; partial relief with PRN medication. Progressing towards POC. Will continue to monitor.
[2018-05-04 15:51] VITALS: BP 108/53
[2018-05-04 20:13] VITALS: BP 99/53
--- NOTE | 2018-05-05 04:30 | NUR ---
PT IS UP TO BATHROOM BY HERSELF. DISCUSSION IS FOR HER TO DC AFTER DIALYSIS TODAY. PAIN IS SOMEWHAT CONTROLLED WITH ORAL PAIN MEDICATION. VSS AND HOURLY ROUNDING.
[2018-05-05 07:24] VITALS: BP 91/48
--- NOTE | 2018-05-05 10:52 | NUR ---
Assumed care of patient at 0700. Vitals have been stable. BP low this morning, but received Midodrine before dialysis. Patient left floor for dialysis about 0815. Complaints of chronic generalized pain, partial relief with PRN Percocet. Patient has been refusing bed alarm, aware of risks. Up ad albert in room. Reports BM last night after Mag Citrate. Awaiting lab results to see how calcium level is doing. After dialysis, probable discharge home. Dr. Hurtado asking if patient can be set up with aerosol treatments at home, will discuss with Dr. Campos. Continue to monitor.
[2018-05-05 11:03] LABS: ALBUMIN 2.4 g/dL (3.4-5.0); PHOSPHORUS 3.8 mg/dL (2.5-4.9)
[2018-05-05 11:04] LABS: CREATININE 5.2 mg/dL (0.6-1.0)
[2018-05-05 11:07] LABS: CALCIUM 5.6 mg/dL (8.5-10.1)
[2018-05-05 16:23] VITALS: BP 109/45
[2018-05-05 19:25] VITALS: BP 100/48
[2018-05-06 04:00] VITALS: BP 94/46
--- NOTE | 2018-05-06 05:01 | NUR ---
Patient making progress towards outcome goals. Vital signs stable, patient did report feeling shaky, improved after eating. States she is never pain free even with percocet. Rhythm stable. Gait steady.
[2018-05-06 07:03] LABS: ALBUMIN 2.4 g/dL (3.4-5.0); CALCIUM 6.2 mg/dL (8.5-10.1); PHOSPHORUS 2.9 mg/dL (2.5-4.9); POTASSIUM 4.2 mmol/L (3.5-5.1)
[2018-05-06 07:06] LABS: CREATININE 3.7 mg/dL (0.6-1.0)
[2018-05-06 07:16] VITALS: BP 98/49
--- NOTE | 2018-05-06 09:08 | NUR ---
care of pt assumed at ~0700 this am. pt awake and watching tv. co generalized pain this am, mediated w/ a pain pill this am. dr. gifford at , informed pt she could go home, so pt has changed into her own clothing and removed her tele monitor. pt informed of need for dr. gordillo to see her this am and he would be the one to place discharge orders in the computer. asked if she would put her tele back on, but she refused.
[2018-05-06 11:10] VITALS: BP 110/63
[2018-05-06] MEDS ORDERED: TUMS PO (13:39)
[2018-05-06] MEDS ORDERED: REGLAN 5 MG TAB5 MG PO (13:39)
[2018-05-06] MEDS ORDERED: CALCITRIOL0.25 MCG PO (13:39)
[2018-05-06 13:51] VITALS: BP 110/63
[2018-05-06 13:57] VITALS: BP 110/63
== END 2018-05-06 14:09 | disposition home or self-care (01) | DRG 640 ==
LOC: ER 14:15 → 3W 16:07 → EROBS 16:07 → ER 16:07 → EROBS 20:18 → 3W 20:18 → ER 05-02 12:48 → 3W 05-02 12:48
PROVIDERS: Emergency Medicine; Internal Medicine; Internal Medicine Endocrinology, Diabetes & Metabolism; Internal Medicine Nephrology; ADMIT Hospitalist
PROC: 5A1D70Z Performance of Urinary Filtration, Intermittent, Less than 6 Hours Per Day (ICD-10-PCS; principal; 2018-04-28)
PROC: 5A1D70Z Performance of Urinary Filtration, Intermittent, Less than 6 Hours Per Day (ICD-10-PCS; 2018-05-01)
PROC: 5A1D70Z Performance of Urinary Filtration, Intermittent, Less than 6 Hours Per Day (ICD-10-PCS; 2018-05-03)
PROC: 5A1D70Z Performance of Urinary Filtration, Intermittent, Less than 6 Hours Per Day (ICD-10-PCS; 2018-05-05)
DX: E83.51 Hypocalcemia (principal); N18.6 End stage renal disease; I12.0 Hypertensive chronic kidney disease with stage 5 chronic kidney disease or end stage renal disease; F32.9 Major depressive disorder, single episode, unspecified; K21.9 Gastro-esophageal reflux disease without esophagitis; E03.9 Hypothyroidism, unspecified; E78.5 Hyperlipidemia, unspecified; I48.0 Paroxysmal atrial fibrillation; J44.9 Chronic obstructive pulmonary disease, unspecified; E83.39 Other disorders of phosphorus metabolism; F41.1 Generalized anxiety disorder; E11.22 Type 2 diabetes mellitus with diabetic chronic kidney disease; D64.9 Anemia, unspecified; Z86.73 Personal history of transient ischemic attack (TIA), and cerebral infarction without residual deficits; Z90.49 Acquired absence of other specified parts of digestive tract; Z98.84 Bariatric surgery status; Z83.3 Family history of diabetes mellitus; Z91.14 Patient's other noncompliance with medication regimen; Z88.6 Allergy status to analgesic agent; Z88.8 Allergy status to other drugs, medicaments and biological substances; Z87.891 Personal history of nicotine dependence; I25.2 Old myocardial infarction; Z99.2 Dependence on renal dialysis
CPT/HCPCS: 10779; 10879; 32100

== ENCOUNTER → 2018-05-14 | Outpatient (CLI) | payer OTHER, BC ==
[~2018-05-14] MED LIST changes: +REGLAN 5 MG TAB5 MG PO
== END ==
LOC: MRI 13:17
DX: R42 Dizziness and giddiness (principal); H53.9 Unspecified visual disturbance; G62.9 Polyneuropathy, unspecified; N18.6 End stage renal disease; Z86.73 Personal history of transient ischemic attack (TIA), and cerebral infarction without residual deficits

== ENCOUNTER 2018-05-22 13:59 | Emergency (ER) | payer OTHER, BC ==
[~2018-05-22] VITALS: Ht 154.9 cm; Wt 73.2 kg
[2018-05-22 15:22] LABS: ANION GAP 12 mmol/L (7-16); BUN 22 mg/dL (7-18); CALCIUM 6.3 mg/dL (8.5-10.1); CHLORIDE 99 mmol/L (98-107); CO2 26 mmol/L (21-32); CREATININE 4.3 mg/dL (0.6-1.0); GLUCOSE 127 mg/dL (74-106); POTASSIUM 4.6 mmol/L (3.5-5.1); SODIUM 137 mmol/L (136-145)
[2018-05-22 15:31] LABS: ALBUMIN 2.9 g/dL (3.4-5.0); LIPASE 164 U/L (73-393); SGPT 21 U/L (30-65); TOTAL BILIRUBIN 0.6 mg/dL (<0.1-1.0); TOTAL PROTEIN 7.4 g/dL (6.4-8.2); TROPONIN-I <0.06 ng/mL (<0.06)
[2018-05-22 15:33] LABS: ABSOLUTE NEUTROPHILS 7.9 thou/uL (1.4-8.2); BASOPHILS 0.8 % (0.0-2.0); EOSINOPHILS 4.9 % (0.0-3.0); HEMATOCRIT 36.6 % (37.0-47.0); HEMOGLOBIN 11.7 gm/dL (12.0-15.0); LYMPHOCYTES 12.2 % (24.0-44.0); MCH 29.6 pg (26.0-34.0); MCHC 31.9 g/dL (28.0-37.0); MCV 92.9 fL (80.0-100.0); MONOCYTES 7.8 % (1.0-8.0); PLATELET COUNT 161 thou/uL (150-400); POLYS 74.3 % (36.0-66.0); RBC 3.94 mil/uL (4.20-5.00); RDW 18.3 % (10.5-14.5); WBC 10.6 thou/uL (4.0-11.0)
[2018-05-22 15:40] LABS: SGOT 27 U/L (15-37)
[2018-05-22 17:06] VITALS: BP 105/61
--- NOTE | 2018-05-22 17:33 | EKG ---
[place] [address] [facility] [place] [address] ELECTROCARDIOGRAM REPORT Name: NIKKY YATES [facility] [id number] ������������������ Admission: 05/22/18 ������������������ Attend Phys: Discharge: 05/22/18 ������������������ Date of : 60 Report #: [id number] ����������������������������������������������������������������� [id number] THIS REPORT FOR: //name// [facility] Test Date: 2018-05-22 Test Time: 15:20:42 Pat Name: NIKKY YATES Department: Room: Gender: F Wireless Cellular Technician: JOHN : 1960 Requested By: Dom Huddleston Order Number: [id number] MD: Didier Zamudio Measurements Intervals [place] Rate: 76 P: 8 GA: 146 QRS: 43 QRSD: 94 T: 92 QT: 443 QTc: 499 Interpretive Statements Sinus rhythm Nonspecific ST and T wave abnormality Borderline prolonged QT interval Compared to ECG 04/30/2018 09:47:48 T-wave abnormality is now present Electronically Signed On 05-22-2018 17:33:44 ALTERATIONS SUPERVISOR by Didier Zamudio [email or web address] ��������������������������������������������� <ELECTRONICALLY SIGNED> ���������������������������������������� By: Didier Zamudio MD, [facility] ��������������������������������������������� 05/22/18 1733 1520 1520 Didier Zamudio MD, [facility] /EPI
== END 2018-05-22 17:11 | disposition home or self-care (01) ==
LOC: ER 13:59
PROVIDERS: Emergency Medicine
DX: R19.7 Diarrhea, unspecified (principal); F41.9 Anxiety disorder, unspecified; F32.9 Major depressive disorder, single episode, unspecified; M79.7 Fibromyalgia; E03.9 Hypothyroidism, unspecified; E78.5 Hyperlipidemia, unspecified; I48.0 Paroxysmal atrial fibrillation; E11.22 Type 2 diabetes mellitus with diabetic chronic kidney disease; N18.6 End stage renal disease; Z87.891 Personal history of nicotine dependence; Z88.5 Allergy status to narcotic agent; Z88.8 Allergy status to other drugs, medicaments and biological substances; Z86.2 Personal history of diseases of the blood and blood-forming organs and certain disorders involving the immune mechanism; Z86.73 Personal history of transient ischemic attack (TIA), and cerebral infarction without residual deficits; Z90.49 Acquired absence of other specified parts of digestive tract; Z99.2 Dependence on renal dialysis

== ENCOUNTER 2018-05-29 09:18 | Inpatient (IN) | payer OTHER, BC ==
[~2018-05-29] VITALS: Ht 154.9 cm; Wt 62.0 kg
--- NOTE | ~2018-05-29 | HC ---
[facility] [place] [address] CONSULTATION Name: NIKKY YATES Room #: 459-P [facility] IN M.R.#: [id number] Admission: 05/29/18 ������������������ Attend Phys: Damaso Lisa MD Discharge: ������������������ Date of : 60 Report #: [id number] THIS REPORT FOR: //name// CC: Damaso Corbin DATE OF SERVICE: 05/29/2018 NEPHROLOGY CONSULTATION ATTENDING PHYSICIAN: Damaso Lisa M.D. REASON FOR CONSULTATION: Intractable nausea, vomiting, diarrhea with hypocalcemia. HISTORY OF PRESENT ILLNESS: This 58-year-old patient with longstanding end-stage renal disease, had a therapeutic parathyroidectomy for severe secondary hyperparathyroidism performed on 04/13/2018. She has had severe hungry bone syndrome, symptomatic hypocalcemia, now has developed intractable nausea, vomiting and diarrhea with persistent hypocalcemia despite maximal outpatient treatment with IV calcium at dialysis, a high dialysis calcium dialysate, and high doses of oral calcium carbonate with calcitriol on a daily basis. Most recent serum calcium in the clinic was 4.3 on 3 days ago. PAST MEDICAL HISTORY: She has had COPD and longstanding ongoing cigarette smoker, longstanding rather severe diabetic, which for the most part resolved after she had gastric bypass surgery, at which point she lost 150-200 pounds. She has had previous atrial fibrillation and a history of cardiac arrest. She has had difficult hypertension and hypotension as well as the severe secondary hyperparathyroidism and the recent parathyroidectomy. SOCIAL HISTORY: Ongoing cigarette smoking. No substantial alcohol. Lives at home with her . REVIEW OF SYSTEMS: GENERAL: She has been feeling very poorly. EYES: Vision is fair. ENT: Hearing okay, swallows okay. No mouth sores. ENDOCRINE: Positive for the diabetes. RESPIRATORY: Does get somewhat easily short-winded. CARDIAC: No chest pains or angina. She has had the previous atrial fibrillation. GASTROINTESTINAL: She has had the intractable nausea, vomiting and diarrhea, has not been liquid stool, but more of a pudding consistency. GENITOURINARY: Makes very little urine. MUSCULOSKELETAL: She has a thigh graft, which she dialyzes with after several [facility] [address] [place] [address] CONSULTATION Name: NIKKY YATES Room #: 459-P [facility] IN M.R.#: [id number] Admission: 05/29/18 ������������������ Attend Phys: Damaso Lisa MD Discharge: ������������������ Date of : 60 Report #: [id number] failed upper extremity accesses. She has a lot of muscle cramping since the surgery associated with her hypocalcemia. HOME MEDICATIONS: Currently include she takes 2000 mg of calcium carbonate 4 times a day, calcitriol 0.5 mcg twice daily, oxycodone p.r.n., Nephrocaps 1 daily, doxycycline 100 mg daily, venlafaxine 300 mg daily, trazodone 300 mg at bedtime, Requip 0.5 mg at bedtime, midodrine 20 mg before each dialysis, Protonix 40 mg twice daily, levothyroxine 300 mcg daily, simvastatin 10 mg daily, sevelamer 800 mg 3 with meals, metoclopramide 5 mg a.c. and at bedtime and was recently discontinued. FAMILY HISTORY: Noncontributory. PHYSICAL EXAMINATION: GENERAL: This is chronically ill appearing patient. SKIN: Her skin has a grayish hue. SKELETAL: Shows her to be well developed, well nourished: No amputations. HEENT: Extraocular movements are full. Vision is intact. Hearing is intact. Mucous membranes dry. NECK: Veins are flat. CHEST: Clear to auscultation. There is no CVA tenderness. HEART: Regular. ABDOMEN: Basically soft and nontender with a very large midline incisional hernia noted, easily reducible. EXTREMITIES: Show they are puffy with no edema. Peripheral pulses are diminished. LABORATORY DATA: The potassium was 2.8, but this was immediately post-dialysis and therefore not reflective of total body potassium stores. Calcium 6.1, phosphorus 5.8. ASSESSMENT: 1. Hypocalcemia, ongoing hungry bone syndrome, inability to replete due to malabsorption secondary to gastric bypass and nausea, vomiting and diarrhea. We will also supplement with p.o. and with IV calcium. 2. End-stage renal disease. Continue Monday, and Monday ongoing dialysis, high calcium bath will be ordered. 3. Chronic obstructive pulmonary disease with cigarette smoking. Denies the need for nicotine patch. 4. Nausea, vomiting, diarrhea. GI consult is indicated. She has a previous gastric bypass, of course. 5. Status post gastric bypass with large bariatric weight loss. 6. History of diabetes mellitus, no longer operative with all of the weight [facility] [address] [facility] [place] [address] CONSULTATION Name: NIKKY YATES Room #: 459-P [facility] IN M.R.#: [id number] Admission: 05/29/18 ������������������ Attend Phys: Damaso Lisa MD Discharge: ������������������ Date of : 60 Report #: [id number] loss and the renal failure. 7. History of atrial fibrillation. ��������������������������������������������� ���������������������������������������� By: ��������������������������������������������� 1739 1334 Wilfred Hurtado MD /nt
[2018-05-29 11:30] VITALS: BP 132/67
--- NOTE | 2018-05-29 13:20 | NUR ---
ADMISSION ASSESMENT COMPLETED. VSS. A/O. PT W/ CHRONIC PAIN. NO NOTED SOA. NO NV. PT RESTING IN BED AT THIS TIME. REPORTS DIARRHEA LAST BM THIS AM. WILL CONT. TO MONITOR.
[2018-05-29 14:58] VITALS: BP 103/52
[2018-05-29 15:14] LABS: ABSOLUTE NEUTROPHILS 8.3 thou/uL (1.4-8.2); BASOPHILS 1.4 % (0.0-2.0); EOSINOPHILS 2.5 % (0.0-3.0); HEMATOCRIT 35.6 % (37.0-47.0); HEMOGLOBIN 11.6 gm/dL (12.0-15.0); LYMPHOCYTES 11.1 % (24.0-44.0); MCH 30.1 pg (26.0-34.0); MCHC 32.5 g/dL (28.0-37.0); MCV 92.6 fL (80.0-100.0); MONOCYTES 8.3 % (1.0-8.0); PLATELET COUNT 161 thou/uL (150-400); POLYS 76.7 % (36.0-66.0); RBC 3.85 mil/uL (4.20-5.00); RDW 16.4 % (10.5-14.5); WBC 10.8 thou/uL (4.0-11.0)
[2018-05-29 15:28] LABS: ALBUMIN 2.5 g/dL (3.4-5.0); CALCIUM 6.1 mg/dL (8.5-10.1); CREATININE 3.9 mg/dL (0.6-1.0); PHOSPHORUS 5.8 mg/dL (2.5-4.9)
[2018-05-29 15:34] LABS: POTASSIUM 2.8 mmol/L (3.5-5.1)
[2018-05-29 18:59] VITALS: BP 108/60
[2018-05-30 04:18] VITALS: BP 91/53
--- NOTE | 2018-05-30 05:29 | NUR ---
Pt. rested quietly at intervals during the night when checked on during frequent rounds. She c/o generalized pain and was given po pain meds (see emar) with some relief noted. Reports having loose stools, but nothing witnessed by nurse. Reports hemmorrhoidal pain and cream was ordered.
[2018-05-30 07:28] VITALS: BP 82/47
[2018-05-30 07:32] LABS: ALBUMIN 2.4 g/dL (3.4-5.0); ANION GAP 12 mmol/L (7-16); BUN 34 mg/dL (7-18); CHLORIDE 105 mmol/L (98-107); CO2 25 mmol/L (21-32); GLUCOSE 79 mg/dL (74-106); PHOSPHORUS 6.5 mg/dL (2.5-4.9); POTASSIUM 3.4 mmol/L (3.5-5.1); SODIUM 142 mmol/L (136-145)
[2018-05-30 07:40] LABS: CREATININE 5.3 mg/dL (0.6-1.0)
[2018-05-30 07:42] LABS: CALCIUM < 5.0 mg/dL (8.5-10.1)
--- NOTE | 2018-05-30 13:05 | NUR ---
Nutrition: assess d/t consult for weight change. Pt admitted for N/V; hx of ESRD (on dialysis). Pt states she has lost ~12 lbs in the past 3 weeks (~5.8% loss). Her appetite has been poor, but she is now making herself eat. Breakfast is usually her best meal of the day. She would like to try Magic cups at lunch/dinner. She is on a calcium replacement. With nutrition intervention in place, consider low risk at this time.
[2018-05-30 13:18] VITALS: BP 105/51
--- NOTE | 2018-05-30 16:24 | NUR ---
PT ADMITTED RELATED TO NAUSEA/VOMITTING/DIARRHEA. CM REVIEWED CHART AND SP0KE WITH CARE TEAM. CM MET WITH PT AT BEDSIDE THIS DAY. PT IS A&O X4. CM ROLE INTRODUCED. PT INDICATED SHE LIVES IN A DUPLEX WITH HER SPOUSE. 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 PT INDICATED [facility]. PT INDICATED SHE HAD HH IN THE PAST BUT DOENS'T WANT IT UPON DISCHARGE. CM TO FOLLOW INDICATED WITH DC PLANNING.
--- NOTE | 2018-05-30 19:46 | NUR ---
Assumed pt care this am, pt complained of pain and requested that her pain meds be given on the dot since this is her norm at home. Critical lab values called out and orders received to replace Ca, please refer to emar for the medication given. IV site infiltrated, was replaced by IV team on the left fore arm. Old IV infiltrated site removed. Diet is well tolerarted, no nausea or vomiting was noted. Pt is scheduled for dialysis tomorrow. Pt is now resting confortably.
[2018-05-30 19:47] VITALS: BP 92/43
[2018-05-30 23:15] VITALS: BP 130/63
[2018-05-30 23:18] VITALS: BP 130/63
--- NOTE | 2018-05-31 02:08 | NUR ---
ASSUMED CARE AT 1900. AXOX4. VSS. NO S/S ACUTE DISTRESS NOTED OR REPORTED AT THIS TIME. WILL CONT TO MOTNITOR FOR ANY CHANGES IN CONDITION.
[2018-05-31 05:01] VITALS: BP 102/45
--- NOTE | 2018-05-31 05:56 | NUR ---
PT REFUSED LAB DRAW SAYING THAT SHE WANTS BLOOD TO BE DRAWN DURING DIALYSIS. TUBES ARE IN THE FOREPART RASPER AND WILL REPORT TO DAY RN.
[2018-05-31 07:36] VITALS: BP 88/44
[2018-05-31 11:20] LABS: ANION GAP 17 mmol/L (7-16); BUN 44 mg/dL (7-18); CHLORIDE 101 mmol/L (98-107); CO2 20 mmol/L (21-32); GLUCOSE 134 mg/dL (74-106); POTASSIUM 3.8 mmol/L (3.5-5.1); SODIUM 138 mmol/L (136-145)
[2018-05-31 11:24] LABS: CREATININE 6.6 mg/dL (0.6-1.0)
[2018-05-31 11:25] LABS: CALCIUM < 5.0 mg/dL (8.5-10.1)
[2018-05-31 11:26] LABS: ALBUMIN 2.5 g/dL (3.4-5.0); DIRECT BILIRUBIN 0.2 mg/dL (<0.1-0.3); TOTAL BILIRUBIN 0.3 mg/dL (<0.1-1.0); TOTAL PROTEIN 5.5 g/dL (6.4-8.2)
--- NOTE | 2018-05-31 15:55 | NUR ---
VSS-AFEBRILE. DIALYSIS TODAY, CALCIUM REPLACED AFTER CRITICAL Ca OF < 5.0 BEFORE DIALYSIS STARTED. ONE EPISDOE OF VOMITING POST DIALYSIS, ZOFRAN PROVIDED RELIEF. OOB WITH SBA, REFUSES ANY/ALL DFALL PRECAUTIONS. PAIN WELL CONTROLLED WITH PRESCRIBED PO MEDICATIONS.
[2018-05-31 19:56] VITALS: BP 102/42
--- NOTE | 2018-06-01 02:17 | NUR ---
ASSUMED CARE AT 1900. AXOX4. GENERALIZED BODY PAIN MANAGED WITH OXY. C/O GENERALIZED PRURITIS. OBTAINED ONETIME ORDER FOR BENADRYL. NO S/S ACUTE DISTRESS NOTED OR REPORTED AT THIS TIME. NO S/S ACUTE DISTRESS NOTED OR REPORTED AT THIS TIME. WILL CONT TO MONITOR FOR ANY CHANGES IN CONDITION.
[2018-06-01 04:22] VITALS: BP 98/51
[2018-06-01 05:57] LABS: HEMATOCRIT 34.1 % (37.0-47.0); HEMOGLOBIN 10.7 gm/dL (12.0-15.0); MCH 30.1 pg (26.0-34.0); MCHC 31.5 g/dL (28.0-37.0); MCV 95.5 fL (80.0-100.0); RBC 3.57 mil/uL (4.20-5.00); RDW 16.8 % (10.5-14.5); WBC 10.4 thou/uL (4.0-11.0)
[2018-06-01 06:09] LABS: POTASSIUM 4.4 mmol/L (3.5-5.1)
[2018-06-01 06:10] LABS: CREATININE 4.5 mg/dL (0.6-1.0)
[2018-06-01 06:11] LABS: CALCIUM 5.7 mg/dL (8.5-10.1)
--- NOTE | 2018-06-01 06:40 | NUR ---
CRITICAL CA LOW. PAGED WILL JAMESON PLANNING INTERN COVERING FOR YIFAN. PER PLANNING INTERN, NNO MAY CALL NEPHROLOGY. NNO AT THIS TIME. WENT AHEAD AND PAGED DR.AL ESPINOZA CAR FRAMER FOR
--- NOTE | 2018-06-01 15:51 | NUR ---
PT IS TO DISCHARGE TO SENIOR SUITES THIS DAY ROOM 221. IT IS ANTICPATED THAT PT WILL DISHCARGE HOME ONCE MEDICALLY STABLE WITH NO NEEDS. CM ABLE TO FOLLOW INDICATED WITH DC PLANNING.
--- NOTE | 2018-06-01 19:41 | NUR ---
Assumed pt care this am, vs table during the shift. Pt IV line was infiltrated, IV removed. IV team reinserted on the upper left FA, Ca IV resumed. GI awaiting previous colonoscopy results from research request has be been faxed earlier this am. Stool studies have been ordered, informed the night nurse and the pt the need for a sample. POC followed and all oral and IV medication given. Pt has been very abrasive and verbally abusive today especially towards SUPERVISOR ORCHARD Purvi. Reported this to the charge nurse and mercedez was called.
--- NOTE | 2018-06-02 08:06 | NUR ---
progress pt upset at start of shift, regarding pain medication spoke to pt and discussed pain management plan and she settled down, had one episode of emesis after tramadol this am resolved with zofran. plan to have dialysis today.
[2018-06-02 08:47] LABS: HEMATOCRIT 32.3 % (37.0-47.0); HEMOGLOBIN 10.4 gm/dL (12.0-15.0); MCH 30.5 pg (26.0-34.0); MCHC 32.1 g/dL (28.0-37.0); MCV 94.9 fL (80.0-100.0); RBC 3.4 mil/uL (4.20-5.00); RDW 16.5 % (10.5-14.5); WBC 10.3 thou/uL (4.0-11.0)
[2018-06-02 09:06] LABS: CREATININE 5.9 mg/dL (0.6-1.0)
[2018-06-02 09:07] LABS: CALCIUM 5.1 mg/dL (8.5-10.1)
[2018-06-02 13:59] VITALS: BP 119/56
[2018-06-02] MEDS ORDERED: TUMS PO (14:51)
[2018-06-02] MEDS ORDERED: TRANSDERM-SCOP1 EACH TRANSDERM (14:52)
[2018-06-02 15:23] VITALS: BP 119/56
--- NOTE | 2018-06-02 16:27 | NUR ---
AAOX4. TO DIALYSIS EARLY THIS A.M. CA++ LEVEL DISCUSSED WITH DR. TRACY. HE IS DISCHARGING HER TO HOME TODAY. FREQUENT CHECKS; WILL CONTINUE TO MONITOR. FROM UNIT BY KARLENE, ACCOMPANIED BY TOMAS BOLES.
== END 2018-06-02 17:20 | disposition home or self-care (01) | DRG 391 ==
LOC: 4W 09:18
PROVIDERS: Hospitalist; Internal Medicine Gastroenterology; Nurse Practitioner; ADMIT Internal Medicine
PROC: 5A1D70Z Performance of Urinary Filtration, Intermittent, Less than 6 Hours Per Day (ICD-10-PCS; principal; 2018-05-31)
PROC: 5A1D70Z Performance of Urinary Filtration, Intermittent, Less than 6 Hours Per Day (ICD-10-PCS; 2018-06-02)
DX: K52.89 Other specified noninfective gastroenteritis and colitis (principal); N18.6 End stage renal disease; F11.20 Opioid dependence, uncomplicated; Y83.8 Other surgical procedures as the cause of abnormal reaction of the patient, or of later complication, without mention of misadventure at the time of the procedure; E83.51 Hypocalcemia; J44.9 Chronic obstructive pulmonary disease, unspecified; F32.9 Major depressive disorder, single episode, unspecified; F41.9 Anxiety disorder, unspecified; K21.9 Gastro-esophageal reflux disease without esophagitis; E78.5 Hyperlipidemia, unspecified; I48.0 Paroxysmal atrial fibrillation; E89.0 Postprocedural hypothyroidism; E11.22 Type 2 diabetes mellitus with diabetic chronic kidney disease; F17.210 Nicotine dependence, cigarettes, uncomplicated; I95.9 Hypotension, unspecified; M79.7 Fibromyalgia; E05.00 Thyrotoxicosis with diffuse goiter without thyrotoxic crisis or storm; Z98.84 Bariatric surgery status; Z88.6 Allergy status to analgesic agent; Z88.8 Allergy status to other drugs, medicaments and biological substances; Z86.73 Personal history of transient ischemic attack (TIA), and cerebral infarction without residual deficits; Z90.49 Acquired absence of other specified parts of digestive tract; Z91.19 Patient's noncompliance with other medical treatment and regimen
CPT/HCPCS: 10045; 10047; 32100